=== PATIENT | male | born 1960 | race Caucasian/White ===

== ENCOUNTER 2017-04-02 19:01 | Emergency (ER) | payer BC, MEDICARE, OTHER ==
[2017-04-02 19:40] VITALS: BP 132/92
--- NOTE | 2017-04-02 19:53 | EDM.PDOC ---
ED HPI GENERAL MEDICAL PROBLEM - General Chief Complaint: General Stated Complaint: BACK PAIN Time Seen by Provider: 04/02/17 19:30 Source of Information: Reports: Patient, RN History Limitations: Reports: No Limitations - History of Present Illness INITIAL COMMENTS - FREE TEXT/NARRATIVE: 56 yr male presents with left sided neck/shoulder pain. States he has been using Ibuprofen 800 mg PO for pain and the pain is so bad, he feels he needs something stronger. States he has been to the chiropractor and it helped some and pain is bad again. States this pain just started suddenly when waking up earlier this week. States Darvon and Percocet don't work for him. States a long history of diabetes, controlled with oral medication. States he has a defribillator to heart and history of controlled hypertension. 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 States he feels needs stronger pain medications related to this history of substance abuse in the past. Left Neck Pain Score (Numeric/FACES): 8 - Related Data Allergies Allergy/AdvReac Type Severity Reaction Status Date / Time No Known Allergies Allergy Verified 04/02/17 19:36 Home Meds: Home Meds PARoxetine HCl [Paroxetine HCl] 30 mg PO DAILY 01/30/13 [History] Quinapril HCl [Accupril] 20 mg PO DAILY 01/30/13 [History] metFORMIN HCl [Metformin HCl ER] 1,000 mg PO BID 01/30/13 [History] Carvedilol [Coreg] 12.5 mg PO BID 04/02/17 [History] ClonazePAM [KlonoPIN] 0.5 mg PO DAILY 04/02/17 [History] ClonazePAM [KlonoPIN] 1 mg PO BEDTIME 04/02/17 [History] Simvastatin [Zocor] 40 mg PO BEDTIME 04/02/17 [History] glipiZIDE [Glucotrol XL] 2.5 mg PO BID 04/02/17 [History] Social & Family History - Tobacco Use Smoking Status *Q: Former Smoker Years of Tobacco use: 40 Packs/Tins Daily: 1 Used Tobacco, but Quit: Yes Month Tobacco Last Used: 1992 Second Hand Smoke Exposure: No - Caffeine Use Caffeine Use: Reports: Soda - Alcohol Use Days Per Week of Alcohol Use: 0 - Recreational Drug Use Recreational Drug Use: No Drug Use in Last 12 Months: No Recreational Drug Type: Reports: Amphetamines (Speed), LSD (Acid), PCP (Chinmay Dust) Recreational Drug Last Use: Prior history of use in past - Living Situation & Occupation Living situation: Reports: Occupation: Employed ED ROS GENERAL - Review of Systems Review Of Systems: See Below Constitutional: Reports: No Symptoms HEENT: Reports: No Symptoms Respiratory: Reports: No Symptoms Cardiovascular: Reports: No Symptoms Musculoskeletal: Reports: Neck Pain, Shoulder Pain Skin: Reports: No Symptoms Neurological: Reports: Other (some tingling and numbness to left arm.) ED EXAM, GENERAL - Physical Exam Exam: See Below Exam Limited By: No Limitations General Appearance: Alert, No Apparent Distress Ears: Hearing Grossly Normal Nose: Normal Inspection Throat/Mouth: Normal Lips Head: Atraumatic, Normocephalic Respiratory/Chest: No Respiratory Distress Back Exam: Normal Inspection, Full Range of Motion, Paraspinal Tenderness Extremities: Normal Inspection, Normal Range of Motion, Other (Pain with deep palpation to upper right back. No limit in ROM noted.) Neurological: Alert, Oriented, Normal Cognition Skin Exam: Warm, Dry, Normal Color Course - Vital Signs Last Recorded V/S: Last Vital Signs Temp 97 F 04/02/17 19:20 Pulse 85 04/02/17 19:20 Resp 16 04/02/17 19:20 BP 132/92 H 04/02/17 19:20 Pulse Ox 96 04/02/17 19:20 - Orders/Labs/Meds Meds: Medications Discontinued Medications Generic Name Dose Route Start Last Admin Trade Name Parveen PRN Reason Stop Dose Admin Ketorolac Tromethamine Confirm 04/02/17 20:16 Toradol Administered 04/02/17 20:17 Dose 60 mg .ROUTE .STK-MED ONE - Re-Assessments/Exams Free Text/Narrative Re-Assessment/Exam: 04/02/17 20:22 Reviewed use of Flexeril as needed for muscle relaxer. Instructed to not drive or use equipment while using this medication. Toradol 60 mg IM given in ER and instructed to not have any more Ibuprofen. Rx for Ketorolac 10 mg PO tid X 5 days. Pt may follow-up with chiropractor. Recommend use of heat and alternate with ice to upper back. Recommend slow progression of upper body, back exercise. Departure - Departure Time of Disposition: 20:24 Disposition: Home, Self-Care 01 Condition: Good Clinical Impression: Paraspinal muscle spasm - Discharge Information Instructions: Ketorolac tablets Referrals: PCP,None [Primary Care Provider] - Forms: ED Department Discharge Additional Instructions: Alternate warm and cool compresses intermittently every 1-2 hours for next 2-3 days. May take provided Flexeril as directed: 1 tablet when you get home tonight, and up to 3 times total daily, only as needed for neck pain. supervisor riprap placing prescription for Toradol at regular pharmacy tomorrow and take as directed: 1 tablet by mouth very 8 hours as needed for pain. Do not take any additional ibuprofen while taking prescribed Toradol. Follow up with regular provider in clinic as needed. Call with any questions.
[2017-04-02] MEDS ORDERED: Cyclobenzaprine 10 MG Tab ONE (20:00)
[2017-04-02] MEDS ORDERED: Ketorolac 60 MG/2 ML SDV IM ONE (20:10)
[2017-04-02] MEDS ORDERED: Ketorolac 60 MG/2 ML SDV ONE (20:16)
== END 2017-04-02 20:30 | disposition home or self-care (01) ==
LOC: LB.ED 19:01
DX: M62.830 Muscle spasm of back (principal); Z79.84 Long term (current) use of oral hypoglycemic drugs; Z79.899 Other long term (current) drug therapy; Z87.891 Personal history of nicotine dependence
CPT/HCPCS: 96372; 99283; J1885; A9270-GY